=== PATIENT | male | born 1975 | race Caucasian/White ===

== ENCOUNTER → 2023-12-03 09:17 | Outpatient (REF) | payer OTHER, SELFPAY | LOC: WOUND 09:17 | PROVIDERS: ATTENDING PHYSICIAN Surgery; FAMILY PHYSICIAN Family Medicine | DX: L97.212 Non-pressure chronic ulcer of right calf with fat layer exposed (principal); E11.29 Type 2 diabetes mellitus with other diabetic kidney complication; E11.65 Type 2 diabetes mellitus with hyperglycemia; E11.42 Type 2 diabetes mellitus with diabetic polyneuropathy | CPT/HCPCS: 99203 ==

== ENCOUNTER → 2023-12-11 09:08 | Outpatient (REF) | payer OTHER, SELFPAY | LOC: WOUND 09:08 | PROVIDERS: ATTENDING PHYSICIAN Surgery; FAMILY PHYSICIAN Family Medicine | DX: L97.212 Non-pressure chronic ulcer of right calf with fat layer exposed (principal); E11.29 Type 2 diabetes mellitus with other diabetic kidney complication; E11.65 Type 2 diabetes mellitus with hyperglycemia; E11.42 Type 2 diabetes mellitus with diabetic polyneuropathy | CPT/HCPCS: 99212 ==

== ENCOUNTER 2024-03-15 08:29 | Emergency (ER) | payer OTHER, SELFPAY ==
[2024-03-15 08:32] VITALS: BP 166/111
--- NOTE | 2024-03-15 08:59 | ED.GENMED ---
History of Present Illness
General
Chief Complaint: Headache
Source: patient
Exam Limitations: none
Time Seen by Provider: 03/15/24 08:41
History of Present Illness
History of Present Illness:
48yoM with a history of type 2 diabetes and a prior TBI presenting for evaluation of dizziness. Patient sustained a concussion and TBI about 2 years ago. He has been having persistent dizziness since that time and is following with [facility].
He was told that he has eye tracking issues and is currently undergoing vestibular therapy. His dizziness feels worse over the past 3 days. He describes his dizziness as feeling like his 'brain is shaking' and that he 'cannot center himself.'
Symptoms are worse with movement and position changes. He states he is able to drive without any issues because he is able to focus on a specific object. He is also having some phonophobia. He denies any headache. He denies any vertiginous
symptoms or lightheadedness. Of note, patient was started on a Z-Rangel yesterday urgent care for a sinus infection. He is currently having some congestion and head pressure. No fevers. He took a home COVID test that was negative. He called his
neurologist and he was told to go to the ED for evaluation. He reports having an MRI brain with and without contrast in the beginning of January 2024 which was reportedly normal.
Past History
Past History
ED Past Medical History: NIDDM and Other (neuropathy feet)
ED Past Surgical History: Orthopedic
Social History
Tobacco: Non-smoker
Alcohol: None
Drug: None
Personal:
Living: with family
Employment: Disabled
Phy Exam
General Physical Exam
General Presentation: well appearing and no apparent distress
General age: appears stated age
General Skin: warm and dry
General Habitus: normal
General Mental: alert
ENT Exam
ENT Exam: normocephalic
Eye Exam
Eye Exam: PERRL and EOMI
Pulmonary Exam
Pulmonary Exam: no respiratory distress
Neurological Exam
Neurological Exam: alert, CN II-XII intact, no motor deficits, speech normal and other (CN 2-12 grossly intact. PERRL. EOMs intact. Negative drift x4. 5/5 strength in all extremities. Normal finger to nose and heel to long bilaterally. Steady gait. )
[place] Coma Scale
Eye Opening: Spontaneous
Verbal Response: Oriented
Motor Response: Obeys Commands
GCS Total Score: 15
Skin Exam
Skin Exam: normal color and warm/dry
Psychiatric Exam
Psychiatric Exam: normal mood/affect
Course
Orders/Labs/Results
Orders:
Orders
03/15/24 09:00
Electrocardiogram (*1) Urgent
Reason for Study: Vertigo / Dizzy
CT Head W/o Iv Contrast Urgent
Comment:
Reason For Exam: dizziness
EKG- Treatment ONCE
03/15/24 09:15
Complete Blood Count/With Diff Urgent
Comprehensive Metabolic Panel Urgent
Troponin I Urgent
Influenza A+B Rapid Molecular Urgent
SARA Source: Nasal Swab
Specimen Description:
03/15/24 09:24
0.9% Sodium Chloride 500 ml [Nss] 500 ml IV BOLUS
Abnormal Lab Results
03/15/24
09:15
MPV 11.5 H fL
(7.4-10.4)
Abs Immat Gran (auto) 0.1 H 10^3/uL
(0-0.05)
Absolute Monos (auto) 0.9 H 10^3/uL
(0.1-0.6)
Immature Gran % 1.0 H %
(0-0.5)
Lymphocytes % 16.2 L %
(20.5-51.1)
Monocytes % 10.7 H %
(1.7-9.3)
Glucose 181 H mg/dl
(70-99)
Total Bilirubin 2.8 H mg/dl
(0.2-1.3)
03/15/24 09:15
03/15/24 09:15
Vital Signs
Initial and Last Documented VS:
Initial Vital Signs
Temp Pulse Resp BP Pulse Ox
97.6 F 109 18 166/111 98
03/15/24 08:32 03/15/24 08:32 03/15/24 08:32 03/15/24 08:32 03/15/24 08:32
Last Documented Vital Signs
Temp Pulse Resp BP Pulse Ox
97.6 F 97 16 131/86 96
03/15/24 08:32 03/15/24 11:04 03/15/24 11:04 03/15/24 11:04 03/15/24 11:04
MDM/Problems Addressed
Differential Diagnosis Includes:
48yoM here with dizziness. Chronic dizziness since a TBI 2 years ago but dizziness worse over the past 3 days. Described as feeling like his head is shaking. Denies vertigo and lightheadedness. Currently being treated for a sinus infection. He is
well appearing in no distress. No focal neuro deficits on exam and patient is ambulating normally. Differential diagnosis includes but is not limited to: postconcussive syndrome, viral illness, dehydration, arrhythmia, doubt CVA given normal neuro
exam
Initial ED plan: Check cardiac labs, EKG, influenza swab, and CT head. IV fluid bolus.
*EKG
Interpreted by ED Provider?: Yes
EKG Intrepretation Date: 03/15/24
Heart Rate: 99
Rate: normal
Rhythm: sinus
[place]: normal axis
Interval: normal interval
QRS Pattern: normal QRS
Ischemia: no ischemia
*Critical Care Note
Total Time (30-74mins, 75-104mins- exclusive of procedures): Not Applicable
Update Note
Update Note:
Labs overall unremarkable. Glucose 181. Isolated bilirubin elevation at 2.8 which was also present on prior labs. Suspect underlying Gilbert syndrome. EKG shows normal sinus rhythm without ischemic changes or ectopy. Troponin within normal
limits. CT head negative for acute findings. No indication for hospitalization at this time as a majority of his dizziness is chronic in nature. Will trial meclizine. He was advised to follow-up with his PCP and neurologist. ED return
precautions discussed. Patient in agreement with plan and was discharged in stable condition.
ED Attending Note
-
Portions of this chart may have been created with voice recognition software.� Occasional wrong word or��sound alike� substitutions may have occurred due to the inherent limitations of voice recognition software.
Discharge Plan
Departure
Patient Disposition: Home (Routine Discharge)
Date of Disposition: 03/15/24
Time of Disposition: 10:50
Patient with high blood pressure during this ER visit?: Yes
Discharge Problem:
Dizziness, nonspecific
Instructions: Dizziness
Prescriptions:
New
meclizine 25 mg tablet
25 mg PO QID PRN (Reason: dizziness) Qty: 20 0RF
No Action
metformin 1,000 MG tablet
1,000 mg PO BID
pregabalin 100 MG capsule
100 mg PO BID
icosapent ethyl [Vascepa] 1 GM capsule
2 gm PO BID
dapagliflozin propanediol [Farxiga] 10 MG tablet
10 mg PO DAILY
levofloxacin 500 MG tablet
500 mg PO DAILY Qty: 7 0RF
celecoxib [Celebrex] 100 mg capsule
100 mg PO BID Qty: 20 0RF
albuterol sulfate [ProAir HFA] 90 mcg/actuation HFA aerosol inhaler
2 puff inhalation Q4HPRN PRN (Reason: shortness of breath) Qty: 8.5 2RF
ondansetron 4 mg tablet,disintegrating
4 mg PO Q8H PRN (Reason: nausea and vomiting) Qty: 20 0RF
doxycycline monohydrate 100 mg capsule
100 mg PO BID 10 Days Qty: 20 0RF
Referrals:
Doron Strong MD [Family Provider] -
Activity Restrictions/Additional Instructions:
Continue taking azithromycin and Flonase for your sinus infection. You may try meclizine as needed for your dizziness.
Please follow-up with your family doctor and neurologist on Sunday. Return to the ER with any new or worsening symptoms.
Interventions
Interventions:
*Risk Screen - Suicide Last Done: 03/15/24 08:32
*General Assessment Last Done: 03/15/24 08:32
*Neglect/Abuse Screening Last Done: 03/15/24 08:32
ED- Fall Risk Assessment Last Done: 03/15/24 09:26
*ED COVID-19 Vaccine History Last Done: 03/15/24 09:17
*Nursing Disposition Last Done: 03/15/24 11:09
ED- Neurological Assessment Last Done: 03/15/24 09:26
Discharge Date and Time
Discharge Date/Time: 03/15/24 11:24
Print Language: ARMENIAN
[2024-03-15 09:16] VITALS: BMI 32.3
[2024-03-15 09:25] LABS: % Basophils 0.6 % (0-2); % Eosinophils 2.1 % (0-6); % Lymphocytes 16.2 % (20.5-51.1); % Monocytes 10.7 % (1.7-9.3); % Neutrophils 69.4 % (42.2-75.2); Absolute Basophils 0.1 10^3/uL (0-0.2); Absolute Eosinophils 0.2 10^3/uL (0-0.7); Absolute Immature Granulocytes 0.1 10^3/uL (0-0.05); Absolute Lymphocytes 1.3 10^3/uL (1.2-3.4); Absolute Monocytes 0.9 10^3/uL (0.1-0.6); Absolute Neutrophils 5.7 10^3/uL (1.4-6.5); Hematocrit 44.2 % (39.0-52.0); Hemoglobin 15.8 g/dL (13.0-18.0); Mean Corp Hgb Conc. 35.7 g/dL (33.0-37.0); Mean Corpuscular Hgb 29.5 pg (27.0-31.0); Mean Corpuscular Volume 82.5 fL (80.0-94.0); Mean Platelet Volume 11.5 fL (7.4-10.4); Nucleated Red Blood Cells % 0 % (-); Platelet Count 180 10^3/uL (130-400); Red Blood Cell Count 5.36 10^6/uL (4.70-6.10); Red Cell Dist. Width 12.8 % (11.5-14.5); White Blood Cell Count 8.2 10^3/uL (4.8-10.8)
[2024-03-15 09:36] LABS: ALT (SGPT) 33 U/L (0-50); AST (SGOT) 30 U/L (17-59); Albumin 4.3 g/dl (3.5-5.0); Alkaline Phosphatase 51 U/L (38-126); Blood Urea Nitrogen 15 mg/dl (9-20); Calcium 9.6 mg/dl (8.4-10.2); Carbon Dioxide 28 mmol/L (22-30); Chloride 99 mmol/L (98-107); Estimated Creatinine Clearance > 125 ml/min; Glucose 181 mg/dl (70-99); Potassium 4.4 mmol/L (3.5-5.1); Sodium 136 mmol/L (135-145); Total Bilirubin 2.8 mg/dl (0.2-1.3); Total Protein 7.5 g/dl (6.3-8.2); eGFR > 60.00
[2024-03-15 09:48] LABS: Troponin I < 0.012 ng/ml
[2024-03-15] MEDS: NSS 500 IV (10:00)
[2024-03-15 11:04] VITALS: BP 131/86
== END 2024-03-15 11:24 | disposition home or self-care (01) ==
LOC: EMR 08:29
PROVIDERS: Physician Assistant; EMERGENCY PHYSICIAN Emergency Medicine; FAMILY PHYSICIAN Family Medicine
DX: R42 Dizziness and giddiness (principal); E11.40 Type 2 diabetes mellitus with diabetic neuropathy, unspecified; Z87.820 Personal history of traumatic brain injury
CPT/HCPCS: 99284; 70450; 80053; 84484; 85025; 87502; 93005